=== PATIENT | male | born 1995 | race Caucasian/White ===

== ENCOUNTER 2017-06-05 19:40 | Inpatient (IN) | payer SELFPAY ==
[~2017-06-05] VITALS: Ht 162.6 cm; Wt 75.0 kg
[2017-06-05] MEDS ORDERED: ONDANSETRON (ODT) 4 MG TAB ODT STA (21:01)
--- NOTE | 2017-06-05 21:18 | ERD ---
ER Documentation Chief Complaint Date/Time DATE: 06/05/17 TIME: 21:15 Chief Complaint c/o abd x 5 days. Denies any n/v/d/f/c. HPI This is a 22-year-old male who presents the emergency department today complaining of intermittent abdominal pain and some nausea for the past 5 days. States he ate some crab on Friday and started having pain after that. Patient states he is here visiting his mom from [place]. States he tried some Zantac. Denies any fevers or chills, vomiting, diarrhea, constipation. ROS All systems reviewed and are negative except as per history of present illness. Medications Home Meds No Active Prescriptions or Reported Meds Allergies Allergies: Coded Allergies: No Known Allergy (Unverified , 04/23/14) PMhx/Soc Hx Alcohol Use: No Hx Substance Use: Yes (marijuana) Hx Tobacco Use: No Physical Exam Vitals Vital Signs Date Time Temp Pulse Resp B/P Pulse Ox O2 Delivery O2 Flow Rate FiO2 06/05/17 19:50 98.4 82 18 126/58 98 Physical Exam Const: NAD Head: Atraumatic Eyes: Normal Conjunctiva ENT: Normal External Ears, Nose and Mouth. Neck: Full range of motion..~ No meningismus. Resp: Clear to auscultation bilaterally Cardio: Regular rate and rhythm, no murmurs Abd: Soft, epigastric tenderness and mild periumbilical pain. No right upper quadrant pain non distended. Normal bowel sounds. No tenderness at McBurney's. Skin: No petechiae or rashes Back: No midline or flank tenderness Ext: No cyanosis, or edema Neur: Awake and alert Psych: Normal Mood and Affect Result Diagram: 06/05/17212706/05/172127 Results 24 hrs Laboratory Tests Test 06/05/17 21:28 White Blood Count 11.310^3/ul Red Blood Count 4.3710^6/ul Hemoglobin 14.3g/dl Hematocrit 40.5% Mean Corpuscular Volume 92.7fl Mean Corpuscular Hemoglobin 32.7pg Mean Corpuscular Hemoglobin Concent 35.3g/dl Red Cell Distribution Width 12.3% Platelet Count 24886^3/UL Mean Platelet Volume 10.0fl Neutrophils % 59.7% Lymphocytes % 31.0% Monocytes % 7.6% Eosinophils % 0.9% Basophils % 0.4% Nucleated Red Blood Cells % 0.0/100WBC Neutrophils # 6.810^3/ul Lymphocytes # 3.510^3/ul Monocytes # 0.910^3/ul Eosinophils # 0.110^3/ul Basophils # 0.010^3/ul Nucleated Red Blood Cells # 0.010^3/ul Bedside Urine pH (LAB) 7.0 Bedside Urine Protein (LAB) Trace Bedside Urine Glucose (UA) Negative Bedside Urine Ketones (LAB) Negative Bedside Urine Blood Trace-intact Bedside Urine Nitrite (LAB) Negative Bedside Urine Leukocyte Esterase (L Negative Sodium Level 141mmol/L Potassium Level 4.3mmol/L Chloride Level 104mmol/L Carbon Dioxide Level 30mmol/L Anion Gap 11 Blood Urea Nitrogen 15mg/dl Creatinine 0.87mg/dl Glucose Level 98mg/dl Calcium Level 9.1mg/dl Total Bilirubin 0.6mg/dl Direct Bilirubin 0.00mg/dl Indirect Bilirubin 0.6mg/dl Aspartate Amino Transf (AST/SGOT) 22IU/L Alanine Aminotransferase (ALT/SGPT) 40IU/L Alkaline Phosphatase 140IU/L Total Protein 6.9g/dl Albumin 3.8g/dl Globulin 3.10g/dl Albumin/Globulin Ratio 1.22 Lipase 97U/L Current Medications Medications (Trade) Dose Ordered Sig/Radha Route PRN Reason Start Time Stop Time Status Last Admin Dose Admin Ondansetron HCl (Zofran Odt) 4 mg ONCE STAT ODT 06/05/17 21:01 06/05/17 21:05 DC 06/05/17 21:24 Miscellaneous Medication (Gi Cocktail (2)) 40 ml ONCE ONCE PO 06/05/17 21:30 06/05/17 21:31 DC 06/05/17 21:23 DIAGNOSTIC IMAGING REPORT Patient: RENÉE HAYS : 1995 Age: 22 Sex: M MR #: [id number] DOS: 06/05/17 230 Ordering MD: MIREYA ANN PA-C Location: [facility] Room/Bed: PROCEDURE: CT Abdomen and pelvis without contrast. CLINICAL INDICATION: Abdominal pain. TECHNIQUE: CT scan of the abdomen and pelvis was performed on a multi- detector high-resolution CT scanner. Contiguous axial images were obtained from the lung bases to the ischial tuberosities without intravenous contrast. Coronal and sagittal reformatted images were also obtained. Images were reviewed on the PACS workstation. One or more of the following dose reduction techniques were used: - Automated exposure control. - Adjustment of the mA and/or kV according to patient size. - Use of iterative reconstruction technique. Exam CTD/vol = 9.69 mGy. Total exam DLP = 591.19 mGy-cm. COMPARISON: None. FINDINGS: Evaluation of the lung bases demonstrates no pleural or parenchymal disease. Abdomen: The liver is normal in size. There is no focal mass or dilatation of the biliary tree. The gallbladder is not distended. The spleen, pancreas and bilateral adrenal glands are within normal limits. Bilateral kidneys are normal in size with no contour deforming mass identified. There is no radiopaque renal or ureteral calculus identified. There is no hydronephrosis or hydroureter. There is no retroperitoneal adenopathy. The abdominal aorta is of normal caliber. There is a distended appendix extending medial and inferior to the cecum measuring up to 15 mm in diameter with mild adjacent stranding. There is no bowel obstruction or free air. There is no diverticulosis or diverticulitis. There is no ascites. Pelvis: The bladder is unremarkable. There is trace pelvic free fluid. The prostate and seminal vesicles are within normal limits. There is no significant pelvic adenopathy. Evaluation of the osseous structures demonstrates no suspicious lytic or blastic lesion. IMPRESSION: Acute appendicitis. Trace pelvic free fluid. A call report was made to Dr. Salgado at 11:35 p.m. .Luiz Sands MD, MD Date Time Electronically viewed and signed by .Luiz Sands MD, MD on 06/05/2017 23:36 .T/ CC: MIREYA ANN PA-C Procedures/[facility] This is a 22-year-old male presents to the emergency department today complaining of intermittent abdominal pain and nausea for the past 5 days that started after eating some crab. On physical exam patient has epigastric tenderness and mild periumbilical tenderness. He is afebrile and otherwise well -appearing however I did obtain laboratory workup. laboratory workup shows a mildly elevated white blood cell count of 11.3. He is not anemic. Platelets are within normal limits. Electrolyte are within normal limits. Glucose within normal limits. Lipase is within normal limits. Liver enzymes are within normal limits. UA negative for infection. Patient was given Zofran and GI cocktail here in the emergency department and pain improved slightly however he still continued to complain of pain just above his umbilicus with movement. Given this I did obtain a CT abdomen noncontrast after discussing the patient with Dr. Salgado CT abdomen pelvis noncontrast shows acute appendicitis. There is trace pelvic free fluid. I have explained the results to the patient mother. Patient has agreed to be admitted to the hospital. I discussed the patient with Dr. Spence and he is agreed to admit the patient. Any further workup or orders placed will be completed by him. Departure Diagnosis: Primary Impression: Abdominal pain Abdominal location: periumbilical Qualified Code: R10.33 - Periumbilical abdominal pain Additional Impression: Appendicitis Appendicitis type: acute appendicitis Acute appendicitis type: unspecified acute appendicitis type Qualified Code: K35.80 - Acute appendicitis, unspecified acute appendicitis type Condition: MIREYA Victor PA-C Jun 05, 2017 21:18
[2017-06-05 21:21] LABS: URINE BLOOD (Dip) POC Trace-intact (NEGATIVE)
[2017-06-05] MEDS ORDERED: LIDOCAINE/MYLANTA 40 ML BTL PO ONE (21:30)
[2017-06-05 21:46] LABS: BASOPHILS % 0.4 % (0.0-2.0); EOSINOPHILS # 0.1 10^3/ul (0.0-0.5); EOSINOPHILS % 0.9 % (0.0-7.0); HEMATOCRIT 40.5 % (42.0-52.0); HEMOGLOBIN 14.3 g/dl (14.0-18.0); LYMPHOCYTES # 3.5 10^3/ul (0.8-2.9); MEAN CORPUSCULAR HEMOGLOBIN 32.7 pg (29.0-33.0); MEAN CORPUSCULAR HGB CONC 35.3 g/dl (32.0-37.0); MEAN CORPUSCULAR VOLUME 92.7 fl (82.0-101.0); MONOCYTE # 0.9 10^3/ul (0.3-0.9); MONOCYTES % 7.6 % (0.0-11.0); NEUTROPHIL # 6.8 10^3/ul (1.6-7.5); NEUTROPHILS % 59.7 % (39.0-77.0); PLATELET COUNT 245 10^3/UL (140-415); RED BLOOD COUNT 4.37 10^6/ul (4.70-6.10); RED CELL DISTRIBUTION WIDTH 12.3 % (11.5-14.5); WHITE BLOOD COUNT 11.3 10^3/ul (4.8-10.8)
[2017-06-05 22:18] LABS: ALBUMIN 3.8 g/dl (3.3-4.9); ALBUMIN/GLOBULIN RATIO 1.22; BILIRUBIN,INDIRECT 0.6 mg/dl (0-1.1); BILIRUBIN,TOTAL 0.6 mg/dl (0.2-1.3); CALCIUM 9.1 mg/dl (8.4-10.2); CREATININE 0.87 mg/dl (0.61-1.24); POTASSIUM 4.3 mmol/L (3.5-5.1); TOTAL PROTEIN 6.9 g/dl (6.1-8.1)
--- NOTE | 2017-06-05 23:36 | RADRPT ---
PROCEDURE: CT Abdomen and pelvis without contrast. CLINICAL INDICATION: Abdominal pain. TECHNIQUE: CT scan of the abdomen and pelvis was performed on a multi-detector high-resolution CT scanner. Contiguous axial images were obtained from the lung bases to the ischial tuberosities wit hout intravenous contrast. Coronal and sagittal reformatted images were also obtained. Images were reviewed on the PACS workstation. One or more of the following dose reduction techniques were used: - Automated exposure control. - Adjustment of the mA and/or kV according to patient size. - Use of iterative reconstruction technique. Exam CTD/vol = 9.69 mGy. Total exam DLP = 591.19 mGy-cm. COMPARISON: None. FINDINGS: Evaluation of the lung bases demonstrates no pleural or parenchymal disease. Abdomen: The liver is normal in size. There is no focal mass or dilatation of the biliary tree. T he gallbladder is not distended. The spleen, pancreas and bilateral adrenal glands are within jose l limits. Bilateral kidneys are normal in size with no contour deforming mass identified. There is no radiopaque renal or ureteral calculus identified. There is no hydronephrosis or hydroureter. T here is no retroperitoneal adenopathy. The abdominal aorta is of normal caliber. There is a distended appendix extending medial and inferior to the cecum measuring up to 15 mm in di ameter with mild adjacent stranding. There is no bowel obstruction or free air. There is no divert iculosis or diverticulitis. There is no ascites. Pelvis: The bladder is unremarkable. There is trace pelvic free fluid. The prostate and seminal v esicles are within normal limits. There is no significant pelvic adenopathy. Evaluation of the osseous structures demonstrates no suspicious lytic or blastic lesion. IMPRESSION: Acute appendicitis. Trace pelvic free fluid. A call report was made to Dr. Salgado at 11:35 p.m. .Luzi Sands MD, MD Date Time Electronically viewed and signed by .Luiz Sands MD, MD on 06/05/2017 23:36 .T/
[2017-06-06] VITALS (16 sets, daily range): BP systolic 95–135; BP diastolic 43–75; PULSE 68–95; RESP 12–24; TEMP 98.2; Ht 162.6 cm; Wt 75.0 kg
[2017-06-06] MEDS ORDERED: PIPER-TAZO 3.375 GM IV (PMX) 100 ML IVPB ONE
[2017-06-06] MEDS ORDERED: SOD CHLORIDE 0.9% 1,000 ML IV ONE
--- NOTE | 2017-06-06 00:21 | EN ---
Date/Time of Note Date/Time of Note DATE: 06/06/17 TIME: 00:17 ER Progress Note Chief complaint: Abdominal pain HPI: The patient is a 22-year-old male, who was seen in the ED 2 initially, presenting with umbilical abdominal pain intermittently for the last 4 days, worse today, the abdominal pain is worse after eating and movement. He also complains of having 5 loose bowel movement today. He denies fever, chills, neck pain, chest pain, nausea, vomiting, dysuria. He does not smoke nor drink Past medical/surgical history: None Const: No acute distress. Head: Atraumatic. Eyes: Normal Conjunctiva. ENT: Normal External Ears, Nose and Mouth. Neck: Full range of motion. No meningismus. Resp: Clear to auscultation bilaterally. Cardio: Regular rate and rhythm. Abd: Soft, non distended, normal bowel sounds, Localized right lower quadrant tenderness, no rigidity, rebound, CVA tenderness Skin: No petechiae or rashes. Back: No midline or flank tenderness. Ext: No cyanosis, or edema. Neur: Awake and alert. No focal deficit Psych: Normal Mood and Affect. [place] [id number] Radiology Main Line: [phone] DIAGNOSTIC IMAGING REPORT Patient: RENÉE HAYS : 1995 Age: 22 Sex: M MR #: [id number] DOS: 06/05/17 2305 Ordering MD: MIREYA ANN PA-C Location: [facility] Room/Bed: PROCEDURE: CT Abdomen and pelvis without contrast. CLINICAL INDICATION: Abdominal pain. TECHNIQUE: CT scan of the abdomen and pelvis was performed on a multi- detector high-resolution CT scanner. Contiguous axial images were obtained from the lung bases to the ischial tuberosities without intravenous contrast. Coronal and sagittal reformatted images were also obtained. Images were reviewed on the PACS workstation. One or more of the following dose reduction techniques were used: - Automated exposure control. - Adjustment of the mA and/or kV according to patient size. - Use of iterative reconstruction technique. Exam CTD/vol = 9.69 mGy. Total exam DLP = 591.19 mGy-cm. COMPARISON: None. FINDINGS: Evaluation of the lung bases demonstrates no pleural or parenchymal disease. Abdomen: The liver is normal in size. There is no focal mass or dilatation of the biliary tree. The gallbladder is not distended. The spleen, pancreas and bilateral adrenal glands are within normal limits. Bilateral kidneys are normal in size with no contour deforming mass identified. There is no radiopaque renal or ureteral calculus identified. There is no hydronephrosis or hydroureter. There is no retroperitoneal adenopathy. The abdominal aorta is of normal caliber. There is a distended appendix extending medial and inferior to the cecum measuring up to 15 mm in diameter with mild adjacent stranding. There is no bowel obstruction or free air. There is no diverticulosis or diverticulitis. There is no ascites. Pelvis: The bladder is unremarkable. There is trace pelvic free fluid. The prostate and seminal vesicles are within normal limits. There is no significant pelvic adenopathy. Evaluation of the osseous structures demonstrates no suspicious lytic or blastic lesion. IMPRESSION: Acute appendicitis. Trace pelvic free fluid. A call report was made to Dr. Salgado at 11:35 p.m. .Luiz Sands MD, MD Date Time Electronically viewed and signed by .Luiz Sands MD, MD on 06/05/2017 23:36 .T/ CC: MIREYA ANN PA-C EKG: Read by emergency physician Rate/Rhythm: Normal Sinus Rhythm 82 beats/min QRS, ST, T-waves: No ST elevation, no T inversion Impression: Normal EKG CXR pending MEDICAL MAKING DECISION: The patient is a 22-year-old male, presenting with acute appendicitis. He was treated with 1 L normal saline for clinical dehydration, Zosyn IV for acute appendicitis, morphine 2 mg IV for pain, Zofran 4 mg IV for nausea with good response. The differential diagnoses considered include but are not limited to cholelithiasis, cholecystitis, cystitis, pancreatitis, hepatitis, gastritis, peptic ulcer disease, gastric ulcer, appendicitis, diverticulitis, cholangitis, choledocholithiasis, partial small bowel obstruction. Consultation: I discussed the patient with the on-call surgeon Dr. Galindo at 12 :10 AM, who was made aware of the lab, the treatment, the patient condition. He accepted the consult Diagnostic impression: Acute appendicitis Disposition: I discussed the findings with the patient. I discussed the patient with the on-call hospitalist Dr. Rodriguez at 12:20 AM who was made aware of the lab, the treatment, the patient condition. The patient is admitted to CINTHYA Burris MD Jun 06, 2017 00:21
[2017-06-06] MEDS ORDERED: ACETAMINOPHEN 325 MG TAB PO PRN (00:30)
[2017-06-06] MEDS ORDERED: morphine 2 MG INJ IV PRN (00:30)
[2017-06-06] MEDS ORDERED: NACL 0.9% 3 ML SYG IV SCH (00:30)
[2017-06-06] MEDS ORDERED: morphine 2 MG INJ IV ONE (00:30)
--- NOTE | 2017-06-06 00:34 | RADRPT ---
PROCEDURE: Portable chest x-ray. CLINICAL INDICATION: 22 years of age, male. Preop. TECHNIQUE: Portable AP view of the chest. COMPARISON: None available. FINDINGS: Cardiomediastinal contours are normal. Lungs are clear. Negative for pleural effusion or pneumothorax. No acute bony abnormality. IMPRESSION: Negative for evidence of an acute chest process. RPTAT: HCTS Physician Rick Date Time Electronically viewed and signed by Vargas Yu Physician on 06/06/2017 00:34 CS/
[2017-06-06] MEDS ORDERED: ONDANSETRON 4 MG INJ IV ONE (00:37)
[2017-06-06] MEDS: SOD CHLORIDE 0.9% 1,000 ML IV SCH ×2 (01:51→12:47)
[2017-06-06] MEDS: FAMOTIDINE 20 MG INJ IV SCH ×2 (01:52→09:15)
--- NOTE | 2017-06-06 05:16 | HP ---
Date/Time of Note Date/Time of Note DATE: 06/06/17 TIME: 05:12 Assessment/Plan VTE Prophylaxis VTE Prophylaxis Intervention: SCD's Lines/Catheters IV [facility]from [facility] Peripheral IV Assessment/Plan Chief Complaint/Hosp Course This is a 22-year-old male being admitted to the [facility] floor for: #1 acute appendicitis: #1 acute appendicitis: Acute patient n.p.o., IV fluid hydration with normal saline, IV narcotics for pain control, Zofran for nausea as needed, Zosyn IV, surgery on-call consulted #2 asthma: Patient currently is not on any medication. Will continue to monitor. #3 DVT and GI prophylaxis: SCDs, acid miguelito Further treatment strategy will be implemented as per the clinical course Problems: HPI/ROS Admit Date/Time Admit Date/Time Jun 06, 2017 at 00:14 Hx of Present Illness Chief complaint: Abdominal pain This is a 22-year-old male who presents the emergency department today complaining of intermittent abdominal pain and some nausea for the past 5 days. States he ate some crab on Friday and started having pain after that. Patient states he is here visiting his mom from [place]. States he tried some Zantac. Denies any fevers or chills, vomiting, diarrhea, constipation. Allergies: Seafood, shrimp Medications: None ROS Const: As per HPI Eyes : No pain discharge or redness or change in visual acuity ENT: No pain, sore throat, congestion, congestion, dysphagia or discharge Respiratory: No shortness of breath, cough, sputum, wheezing, or pleuritic pain Cardiovascular: No chest pain, palpitation, PND, or edema GI : As per HPI Genitourinary: No dysuria, hematuria, flank pain , discharge or CVA tenderness Musculoskeletal: No joint pain, back pain, neck pain, restricted range of motion in neck or joints Skin: No rash, bruising or hives Neuro: No headache, dizziness, syncope, seizure, focal weakness Endocrine: No polyuria, polydipsia, temperature intolerance Psych: No hallucination, depression, anxiety or suicidal ideation PMH/Family/Social Past Medical History Asthma Past Surgical History Past Surgical Hx: no surgical history Family History Significant Family History: no pertinent family hx Social History Alcohol Use: none Smoking Status: Never smoker Drug Use: none Exam/Review of Systems Vital Signs Vitals Vital Signs Date Time Temp Pulse Resp B/P Pulse Ox O2 Delivery O2 Flow Rate FiO2 06/06/17 02:50 98.8 77 16 120/60 98 06/06/17 01:11 Room Air Exam Exam General: Patient is well-developed well-nourished The patient is alert oriented -3 lying comfortably in bed. HEENT: Atraumatic, normocephalic. The pupils are equal, round and reactive. Extraocular motor are intact Neck: Supple with full range of motion. No rigidity or meningismus Chest: Nontender Lungs: Clear to auscultation bilaterally no crackles rales or wheezing Heart: Normal S1-S2, Regular rhythm and rate. No murmur, S3, or S4 Abdomen: Right lower quadrant tenderness to palpation, normal bowel sounds, no distention Extremities: Normal to inspection, no edema no cyanosis Neurologic: Normal mental status, speech normal, cranial nerves II through XII are intact, motor and sensory are intact, no focal weakness Additional Comments PROCEDURE: CT Abdomen and pelvis without contrast. CLINICAL INDICATION: Abdominal pain. TECHNIQUE: CT scan of the abdomen and pelvis was performed on a multi- detector high-resolution CT scanner. Contiguous axial images were obtained from the lung bases to the ischial tuberosities without intravenous contrast. Coronal and sagittal reformatted images were also obtained. Images were reviewed on the PACS workstation. One or more of the following dose reduction techniques were used: - Automated exposure control. - Adjustment of the mA and/or kV according to patient size. - Use of iterative reconstruction technique. Exam CTD/vol = 9.69 mGy. Total exam DLP = 591.19 mGy-cm. COMPARISON: None. FINDINGS: Evaluation of the lung bases demonstrates no pleural or parenchymal disease. Abdomen: The liver is normal in size. There is no focal mass or dilatation of the biliary tree. The gallbladder is not distended. The spleen, pancreas and bilateral adrenal glands are within normal limits. Bilateral kidneys are normal in size with no contour deforming mass identified. There is no radiopaque renal or ureteral calculus identified. There is no hydronephrosis or hydroureter. There is no retroperitoneal adenopathy. The abdominal aorta is of normal caliber. There is a distended appendix extending medial and inferior to the cecum measuring up to 15 mm in diameter with mild adjacent stranding. There is no bowel obstruction or free air. There is no diverticulosis or diverticulitis. There is no ascites. Pelvis: The bladder is unremarkable. There is trace pelvic free fluid. The prostate and seminal vesicles are within normal limits. There is no significant pelvic adenopathy. Evaluation of the osseous structures demonstrates no suspicious lytic or blastic lesion. IMPRESSION: Acute appendicitis. Trace pelvic free fluid. A call report was made to Dr. Salgado at 11:35 p.m. .Luiz Sands MD, Date Time Electronically viewed and signed by .Liuz Sands MD, on 06/05/2017 23:36 .T/ CC: MIREYA ANN-Connor PROCEDURE: Portable chest x-ray. CLINICAL INDICATION: 22 years of age, male. Preop. TECHNIQUE: Portable AP view of the chest. COMPARISON: None available. FINDINGS: Cardiomediastinal contours are normal. Lungs are clear. Negative for pleural effusion or pneumothorax. No acute bony abnormality. IMPRESSION: Negative for evidence of an acute chest process. RPTAT: HCTS Physician Rick Date Time Electronically viewed and signed by Vargas Yu Physician on 06/06/2017 00: 34 CS/ CC: CINTHYA MICHEL MD Labs Result Diagram: 06/05/17212706/05/172127 Medications Medications Current Medications Sodium Chloride (NS) 1,000 ml @ 80 mls/hr [id number] IV Last administered on 06/06t 01:51; Admin Dose 80 MLS/HR; Start 06/06/17 at 00:17 Ondansetron HCl (Zofran Inj) 4 mg Q6H PRN IV NAUSEA AND/OR VOMITING; Start at 00:30 Acetaminophen (Tylenol Tab) 650 mg Q6H PRN PO PAIN LEVEL 1-3 OR FEVER; Start at 00:30 Morphine Sulfate (morphine) 2 mg Q4H PRN IV SEVERE PAIN LEVEL 7-10; Start 06/06 at 00:30 Famotidine 20 mg 20 mg Q12 IV Last administered on 06/06/17t 01:52; Admin Dose 20 MG; Start 06/06/17 at 00:30 Piperacillin Sod/ Tazobactam Sod (Zosyn 3.375gm/ 100 ml (Pmx)) 100 ml @ 200 mls /hr Q8 IVPB ; Start 06/06/17 at 06:00 JOSE FABIAN Jun 06, 2017 05:16
[2017-06-06] MEDS ORDERED: PIPER-TAZO 3.375 GM IV (PMX) 100 ML IVPB SCH (06:00)
--- NOTE | 2017-06-06 12:09 | CONS ---
Date/Time of Note Date/Time of Note DATE: 06/06/17 TIME: 12:09 Assessment/Plan Assessment/Plan Additional Assessment/Plan [facility] IN[facility]IENT CONSULT[facility] NOTE DATE OF SERVICE: 06/06/2017 PLACE OF SERVICE: [facility], sixth floor ASSESSMENT AND PLAN: A very-pleasant 22-year-old gentleman with comorbidity of BMI 28.4, presenting with acute appendicitis. I recommended and consented the patient and family for laparoscopic, possible open appendectomy. With above assessment, I've recommended the followin. To the operating room for above Thank you very much for having me involved in the care of this very pleasant patient and wonderful family. If you have any questions, please feel free to contact me at [phone]. Nature of presenting problem: Moderate severity Please note that, given the limited number of diagnoses or management options, the moderate amount and/or complexity of data needed to be reviewed, and moderate risk of complications and/or morbidity or mortality, this qualifies as moderate complexity type of decision-making. Disclaimers: 1. Inadvertent spelling and grammatical errors are likely due to electronic health record (EHR)/dictation software use and do not reflect on the quality of delivered patient care. 2. The electronic timestamp recorded on this note does not necessarily reflect the actual date and time of the visit. 3. Portions of this note are created through electronic templates and computer algorithms that may bring in information either from the system or from other physicians and providers that are outside of my control and may not be always accurate. In general (but not always) this happens either in the beginning or at the end of the note. My portions of the gathered data are generally dictated in 1 continuous block of text and entered into one field in the EHR. 4. There may be other unanticipated errors in the note that are outside of my control. I can only attest to the portions of the note that I have created. Updated clinical summary: Very pleasant and otherwise healthy 22-year-old gentleman with comorbidity of BMI 28.4, presenting with acute appendicitis to [facility] through the emergency department on 06/06/2017. Comorbidities: 1. BMI 28.4 CONSULTATION REQUESTED BY: Jeny Rodriguez MD HISTORY OF PRESENT ILLNESS: Patient is a very pleasant and otherwise healthy 22- year-old gentleman with comorbidity of BMI 28.4, presenting with acute appendicitis to [facility] through the emergency department on 06/06/2017. Patient reported having pain since Friday. He started having nausea but no vomiting. No change in bowel or bladder habits including no diarrhea or constipation or blood in the stool. He describes the pain as right lower quadrant without radiation. Severe at its worse. No alleviating or exacerbating factors. No prior operations in the past. No prior similar symptoms in the past. No other major complaints. Pain essentially resolved with pain medications. Workup was positive for white blood cell count elevation as well as CT findings. ALLERGIES: Raw seafood and shrimp (unknown reaction) MEDICATIONS Documented in the electronic records and reviewed by me. Please see the electronic records for details, as well as details for inpatient medications which were also reviewed by me. SOCIAL HISTORY: The patient lives with family.-Tob;-ETOH;-IVDU FAMILY HISTORY: There are no significant medical, surgical or oncologic issues in the family as reported by the patient or reflected in the chart. REVIEW OF SYSTEMS: Other than mentioned above, there were no other pertinent positives or pertinent negatives in an otherwise complete 14 point review of systems. PHYSICAL EXAMINATION GENERAL: The patient appears to be a very pleasant gentleman of descent lying in bed, appearing stated age, and otherwise in no acute distress. BMI: 28.4 VITAL SIGNS: AVSS (please also see auto important data if available as well as the electronic records) HEENT: Normocephalic and atraumatic. Extraocular muscles and hearing are grossly intact bilaterally and symmetrically. Sclerae are nonicteric. Oral cavity is clear; oral mucosa appear to be pink and moist. Dentition: fair. NECK: Supple. There is no lymphadenopathy or JVD. There is no submental, submandibular or supraclavicular lymphadenopathy. CHEST: Rises symmetrically with each breath; patient is breathing comfortably. There are no audible wheezes, rales or rhonchi on the gross exam. HEART: Pulse is regular and palpable on the right wrist. Capillary refill is normal. Carotid pulses are palpable bilaterally and symmetrically in the neck. EXTREMITIES: Lower extremities contain no pitting edema around the ankles bilaterally and symmetrically. ABDOMEN: Abdomen is soft, nontender and nondistended. No evidence of ascites, organomegaly, caput medusae, engorged subcutaneous veins, or other abnormalities. There are no peritoneal signs or guarding. SKIN: Appears to be pink and feels warm to touch. NEUROLOGIC: Awake, alert, and follows commands appropriately. LABORATORY DATA: See below IMAGING: See electronic chart. Please note that I've personally reviewed all pertinent available images and I agree in general with their overall reported findings. Consultation Date/Type/Reason Admit Date/Time Jun 06, 2017 at 00:14 Past Surgical History Past Surgical Hx: no surgical history Social History Alcohol Use: none Smoking Status: Never smoker Drug Use: none Exam/Review of Systems Vital Signs Vitals Vital Signs Date Time Temp Pulse Resp B/P Pulse Ox O2 Delivery O2 Flow Rate FiO2 06/06/17 08:07 98.5 65 18 110/69 98 06/06/17 01:11 Room Air Intake and Output 06/05/17 06/05/17 06/06/17 15:00 23:00 07:00 Intake Total 240 ml Output Total 1200 ml Balance -960 ml Results Result Diagram: 06/05/17212706/05/172127 Results 24 hrs Laboratory Tests Test 06/05/17 21:28 White Blood Count 11.3 H Red Blood Count 4.37 L Hemoglobin 14.3 Hematocrit 40.5 L Mean Corpuscular Volume 92.7 Mean Corpuscular Hemoglobin 32.7 Mean Corpuscular Hemoglobin Concent 35.3 Red Cell Distribution Width 12.3 Platelet Count 245 Mean Platelet Volume 10.0 Neutrophils % 59.7 Lymphocytes % 31.0 Monocytes % 7.6 Eosinophils % 0.9 Basophils % 0.4 Nucleated Red Blood Cells % 0.0 Neutrophils # 6.8 Lymphocytes # 3.5 H Monocytes # 0.9 Eosinophils # 0.1 Basophils # 0.0 Nucleated Red Blood Cells # 0.0 Bedside Urine pH (LAB) 7.0 Bedside Urine Protein (LAB) Trace H Bedside Urine Glucose (UA) Negative Bedside Urine Ketones (LAB) Negative Bedside Urine Blood Trace-intact H Bedside Urine Nitrite (LAB) Negative Bedside Urine Leukocyte Esterase (L Negative Sodium Level 141 Potassium Level 4.3 Chloride Level 104 Carbon Dioxide Level 30 Anion Gap 11 Blood Urea Nitrogen 15 Creatinine 0.87 Glucose Level 98 Calcium Level 9.1 Total Bilirubin 0.6 Direct Bilirubin 0.00 Indirect Bilirubin 0.6 Aspartate Amino Transf (AST/SGOT) 22 Alanine Aminotransferase (ALT/SGPT) 40 Alkaline Phosphatase 140 H Total Protein 6.9 Albumin 3.8 Globulin 3.10 Albumin/Globulin Ratio 1.22 Lipase 97 Medications Medications Current Medications Sodium Chloride (NS) 1,000 ml @ 80 mls/hr [id number] IV Last administered on 06/06 01:51; Admin Dose 80 MLS/HR; Start 06/06/17 at 00:17 Ondansetron HCl (Zofran Inj) 4 mg Q6H PRN IV NAUSEA AND/OR VOMITING; Start at 00:30 Acetaminophen (Tylenol Tab) 650 mg Q6H PRN PO PAIN LEVEL 1-3 OR FEVER; Start at 00:30 Morphine Sulfate (morphine) 2 mg Q4H PRN IV SEVERE PAIN LEVEL 7-10; Start 06/06 at 00:30 Famotidine 20 mg 20 mg Q12 IV Last administered on 06/06/17 09:15; Admin Dose 20 MG; Start 06/06/17 at 00:30 Piperacillin Sod/ Tazobactam Sod (Zosyn 3.375gm/ 100 ml (Pmx)) 100 ml @ 200 mls /hr Q8 IVPB Last administered on 06/06/17 06:41; Admin Dose 200 MLS/HR; Start 06/06/17 at 06:00 STANTON HAMILTON M.D. Jun 06, 2017 12:09
--- NOTE | 2017-06-06 12:10 | HPN ---
Date/Time of Note Date/Time of Note DATE: 06/06/17 TIME: 12:09 Interval H&P Admission Note Pt. seen H&P reviewed: No system changes Pt. seen H&P reviewed. No system changes (I attest that I have seen and examined the patient and reviewed the operation in detail, as well as its risks , benefits and alternatives of the operation). I attest that I have seen and examined the patient and reviewed in detail the operation, and its associated risks, benefits and alternative. I have answered all the patient's questions to the best of my ability and the patient wishes to proceed. Please refer to rest of electronic medical record for additional updates. STANTON HAMILTON M.D. Jun 06, 2017 12:10
[2017-06-06] MEDS ORDERED: BUPIVACAINE 0.5%/EPI (SDV) 10 ML INJ ONE (12:35)
[2017-06-06] MEDS ORDERED: MIDAZOLAM 1 MG/ML 2 ML INJ ONE (12:52)
[2017-06-06] MEDS ORDERED: FENTAnyl 50 MCG/ML VIAL ONE (12:52)
[2017-06-06] MEDS ORDERED: PROPOFOL 20 ML ONE ×2 (12:53→12:59)
[2017-06-06] MEDS ORDERED: LIDOCAINE 2% (SDV) 5 ML INJ ONE (12:53)
[2017-06-06] MEDS ORDERED: ROCURONIUM 50 MG INJ ONE (12:59)
[2017-06-06] MEDS ORDERED: SUCCINYLCHOLINE CHLORIDE 100 MG/5 ML SYG IV ONE (12:59)
[2017-06-06] MEDS ORDERED: ONDANSETRON 4 MG INJ ONE (13:02)
[2017-06-06] MEDS ORDERED: FAMOTIDINE 20 MG INJ ONE (13:03)
[2017-06-06] MEDS ORDERED: DEXAMETHASONE 4 MG/ML 1 ML INJ ONE (13:03)
[2017-06-06] MEDS ORDERED: GLYCOPYRROLATE 0.4 MG INJ ONE ×2 (13:04→13:53)
[2017-06-06] MEDS ORDERED: NEOSTIGMINE 3 MG/3 ML SYRINGE ONE ×2 (13:04→13:52)
[2017-06-06 13:21] LABS: PROTIME 13.2 Sec (12.2-14.2)
[2017-06-06] MEDS ORDERED: FENTAnyl 50 MCG/ML VIAL IV PRN ×3 (14:00)
[2017-06-06] MEDS ORDERED: PROCHLORPERAZINE 10 MG INJ IV PRN (14:00)
[2017-06-06] MEDS ORDERED: MEPERIDINE 25 MG INJ IV PRN (14:00)
[2017-06-06] MEDS ORDERED: DIPHENHYDRAMINE 50 MG INJ IV PRN (14:00)
[2017-06-06] MEDS ORDERED: HYDROmorphONE (0.2 MG/ML) 10ML SYG IV PRN ×3 (14:00)
[2017-06-06] MEDS ORDERED: ONDANSETRON 4 MG INJ IV PRN (14:00)
[2017-06-06] MEDS ORDERED: KETOROLAC 30 MG INJ ONE (14:03)
[2017-06-06] MEDS ORDERED: ACETAMINOPHEN 1000MG/100ML IV 0 ML ONE (14:03)
--- NOTE | 2017-06-06 14:14 | OPR ---
Date/Time of Note Date/Time of Note DATE: 06/06/17 TIME: 14:14 Operative Report Surgeon see signature line Procedure Description [facility] PLACE OF SERVICE: [facility] DATE OF SURGERY: 06/06/2017 PREOPERATIVE DIAGNOSIS: 1. Acute appendicitis 2. BMI 28.4 POSTOPERATIVE DIAGNOSIS: 1. Acute appendicitis 2. BMI 28.4 OPERATION: 1. Laparoscopic appendectomy SURGEON: Stanton Hamilton M.D. EMERGENCY MEDICAL DISPATCHER: None ANESTHESIA: General endotracheal tube anesthesia ANESTHESIOLOGIST: Anastasia Morales M.D. BRIEF SUMMARY: An otherwise uncomplicated laparoscopic appendectomy was performed with findings of non-perforated appendicitis. Updated clinical summary: Very pleasant and otherwise healthy 22-year-old gentleman with comorbidity of BMI 28.4, presenting with acute appendicitis to [facility] through the emergency department on 06/06/2017. Comorbidities: 1. BMI 28.4 BRIEF HISTORY: The patient is a very pleasant 22-year-old gentleman who presented with signs and symptoms consistent with acute appendicitis. I met with the patient and family (his mother) and counseled them regarding the possible options of treatment, and I strongly suggested a laparoscopic, possible open appendectomy. We reviewed the operation in detail as well as the risks, benefits, alternatives, and expected outcomes of this operation. After careful consideration of all the risks, benefits, and alternatives, the patient and family appeared to understand those risks and wished to proceed with surgery. For a detailed report of my consultation with patient and family, please refer to my separate consultation note. STATEMENT OF THE INFORMED CONSENT: The patient and family appeared to understand the risks of the operation to include, but not be limited to risk of postoperative pain and scar tissue, possible infection or bleeding requiring other interventions such as opening the wound, placement of drainage catheters, or other operative interventions; possible injury to surrounding to structures including bowel, bladder, bile duct, or blood vessels, or solid organs such as liver, kidney, or pancreas requiring other interventions or procedures; possible leakage of bowel from anastomotic sites or suture lines causing significant increase in morbidity and mortality and requiring multiple interventions including but not limited to, placement of drainage catheters, imaging studies, as well as operative interventions; possible other source of sepsis such as urinary tract infections or pneumonias, or other sources of potentially life threatening problems such as deep venous thrombus formation causing pulmonary embolism, myocardial arrhythmias and infarctions, and even . After careful consideration of all their options, the patient and family appeared to understand and wished to proceed with surgery. DESCRIPTION OF PROCEDURE: After obtaining informed consent, the patient was brought into the operating room and was placed in a normal supine position, where successful general endotracheal tube anesthesia was performed. Intravenous access was already in place and intravenous antimicrobials had been appropriately chosen and dosed prior to the operation. The patient's abdominal skin was prepped and draped from the nipple line down to the level of the upper thighs in the usual sterile fashion. We then called a surgical time-out where the patient's identification, date of , nature of the operation, allergies , presence of intravenous antimicrobials, presence of needed equipment, and any other concerns were reviewed and agreed upon by all members of the operating room team. We then started the operation by placing a 5 mm skin incision in the left lower quadrant and then introduced a 5 mm [employer] trocar into the peritoneal space, visualizing all the layers of the abdominal wall as we entered. Note that there was no indication of any injury to underlying structures with our entry into the peritoneal space. We insufflated the abdominal cavity to a maximum pressure of 15 mmHg and again inspected the area of insertion and ensured no obvious injury to underlying structures prior to inspecting the abdominal cavity and showing no obvious pus, bowel contents, or other abnormal features. We could not see the appendix very well. We, therefore, injected the future sites of our other trocars with 0.25% Marcaine with epinephrine and placed a 5 mm [employer] trocar into the midline suprapubic area, taking care not to injure the bladder. We also placed a 12 mm trocar in the umbilical midline area, all under direct visualization. With our instruments in place, we had excellent visualization and access to the right lower quadrant. We then identified the appendix, which was inflamed but had a normal base coming out of the cecum. I then went ahead and used blunt dissection to circumferentially isolate the base of the appendix and then transected this using one firing of the white load of the Endo-MAL stapler. We also repeated the firing on the mesentery of the appendix and completely disconnected the organ from the colon, delivered this out through the 12 mm trocar site inside of an EndoCatch bag without having to enlarge the fascial defect as well as without contaminating the wound. The specimen was sent to Pathology for further analysis. We then ensured adequate hemostasis and bile stasis, removed all our equipment including the pneumoperitoneum from the abdominal cavity prior to closing the infraumbilical fascia with 1 [id number] 0 Vicryl suture on a UR -6 needle, washing the wounds with copious amounts of normal saline, injecting the initial insertion point of the trocar with 0.25% Marcaine with epinephrine, and then closing the skin using interrupted 4-0 Monocryl sutures. Light dressing was then applied. At the end of the operation, both the sponge count and needle count were reportedly correct x2. The patient tolerated the procedure without any reported complications. ESTIMATED BLOOD LOSS: Less than 10 mL. BLOOD OR BLOOD PRODUCT TRANSFUSIONS: None to my knowledge. SPECIMENS: 1. Appendix COMPLICATIONS: None. DISPOSITION: Recovery area. Disclaimers: 1. Inadvertent spelling and grammatical errors are likely due to electronic health record (EHR)/dictation software use and do not reflect on the quality of delivered patient care. 2. The electronic timestamp recorded on this note does not necessarily reflect the actual date and time of the visit. 3. Portions of this note are created through electronic templates and computer algorithms that may bring in information either from the system or from other physicians and providers that are outside of my control and may not be always accurate. In general (but not always) this happens either in the beginning or at the end of the note. My portions of the gathered data are generally dictated in 1 continuous block of text and entered into one field in the EHR. 4. There may be other unanticipated errors in the note that are outside of my control. I can only attest to the portions of the note that I have created. STANTON HAMILTON M.D. Jun 06, 2017 14:14
[2017-06-06] MEDS ORDERED: NA PHOSPHATE/BIPHOS 133 ML ENEMA PR PRN (14:30)
[2017-06-06] MEDS ORDERED: DOCUSATE SODIUM 100 MG CAP PO PRN (14:30)
[2017-06-06] MEDS ORDERED: HYDROCODONE/APAP (5/325) TAB PO PRN (14:30)
[2017-06-06] MEDS ORDERED: BISACODYL 10 MG SUPP PR PRN (14:30)
[2017-06-06] MEDS ORDERED: HYDROmorphONE 1 MG/ML SYG IV PRN ×2 (14:30)
[2017-06-06] MEDS: ONDANSETRON 4 MG INJ IV PRN ×2 (14:32→15:42)
--- NOTE | 2017-06-06 15:48 | PDOCDIS ---
Discharge Instructions DIAGNOSIS Discharge Diagnosis Acute appendicitis. Status post laparoscopic appendectomy. CONDITION Patient Condition: Stable HOME CARE INSTRUCTIONS: Diet Instructions: Regular FOLLOW UP/APPOINTMENTS Follow-up Plan Ming Caban MD Specialty General Surgery Office Address [address] [place], [place] [id number] Office OTHER ORDERS: Other Orders: 1. Regular diet as tolerated. 2. Keep incisions clean and dry. May shower. Avoid tub baths and swimming for 2 weeks. Use mild soap and pat dry the incisions. 3. Take medications as needed for pain. 4. Call the surgeon or go to the nearest ER if you have severe abdominal pain despite pain medications. 5. Call the surgeon or go to the nearest ER if you notice any bleeding or secretions coming out of the incision sites. Also call the surgeon if you notice any blood in stool, if you have persistent fevers, or any other unusual signs or symptoms. 6. Follow-up with the surgeon Dr. Caban in 7 days for incision check. 7. Avoid heavy lifting [more than 25 pounds] for 8 weeks. SCHOOL/WORK RELEASE May return to School/Work on: Jun 08, 2017 May return to School/Work with: With Restrictions (No heavy lifting [greater than 25 pounds] for 8 weeks [until August 08].) NUBIA PETERSON NP Jun 06, 2017 15:48
[2017-06-06] MEDS ORDERED: HYDR-3498 PO (15:51)
[2017-06-06] MEDS ORDERED: DOCU-144 PO (15:51)
[2017-06-06] MEDS: HYDROCODONE/APAP (5/325) TAB PO PRN (19:08)
[2017-06-06] MEDS ORDERED: FAMOTIDINE 20 MG TAB PO SCH (21:00)
--- NOTE | 2017-06-06 22:32 | DS ---
DATE OF ADMISSION: 06/06/2017 DATE OF DISCHARGE: 06/06/2017 FINAL DIAGNOSES: Acute appendicitis. Status post laparoscopic appendectomy. DOUGH CUTTING MACHINE OPERATOR: Ming Caban MD General Surgery. HOSPITAL COURSE: This is a 22-year-old male with no significant past medical history who came to the emergency room with chief complaint of intermittent abdominal pain and nausea for a five day period. The patient verbalized that he ate some crab on Friday and started having the pain after that. The patient has been visiting his mom from [place]. The patient tried Zantac with minimal improvement. The patient denied any fevers, chills, vomiting, diarrhea or constipation. In the emergency room, the patient was noticed to have minimal leukocytosis. The patient underwent a CT scan of the abdomen and pelvis that showed acute appendicitis. The patient was admitted to inpatient medical surgical floor. The patient was started on empiric antibiotics. The patient was kept n.p.o. The patient was provided with IV fluids. General Surgery consult was obtained. The patient underwent a laparoscopic appendectomy on 06/06/2017. Postoperatively, the patient was started on a clear liquid diet and the patient's diet was advanced as tolerated to a regular consistency diet. The patient was encouraged to use incentive spirometry and the patient was encouraged on frequent ambulation. The patient was able to tolerate a regular consistency diet without any significant gastrointestinal symptoms. The patient was cleared by General Surgery to be discharged home. DISCHARGE DISPOSITION/PLAN: The patient will be discharged home today. The patient was instructed to take a regular diet as tolerated. The patient was instructed to keep the incisions clean and dry. He was instructed that he may shower, but avoid hot bath and swimming for two weeks. He was instructed to use mild soap and pat dry the incisions. The patient was instructed to take pain medications as needed. He was instructed to call the surgeon or go to the nearest emergency room if he has significant abdominal pain despite pain medications. The patient was instructed to call the surgeon or go to the nearest emergency room if he notices any bleeding or secretions coming out of the incision site. He was also instructed to call the surgeon if he notices any blood in stool, if he has persistent fevers, or any other unusual signs/symptoms. The patient was instructed to follow up with Dr. Caban in seven days for incision check. He was instructed to avoid heavy lifting of more than 25 pounds for eight weeks. The patient verbalized understanding of his discharge instructions. DISCHARGE CONDITION: Stable. DISCHARGE MEDICATIONS: 1. Colace 100 mg p.o. b.i.d. 2. [place] 5/325, 1 tablet p.o. every 4 hours p.r.n. pain (#20 tablets). DIAGNOSTIC DATA AND PROCEDURES: 1. CT scan of the abdomen and pelvis upon admission. Acute appendicitis. Trace pelvic free fluid. 2. Chest x-ray. Negative for any acute cardiopulmonary process. 3. CBC: WBC 11.3, hemoglobin 14.3, hematocrit 40.5, platelet count 245,000. 4. BMP: Sodium 141, potassium 4.3, chloride 104, carbon dioxide 30, anion gap 11, BUN 15, creatinine 0.8, glucose 98, calcium 9.1, AST 22, ALT 48, alkaline phosphatase 140. 5. Laparoscopic appendectomy. At this time, I would like to thank Dr. Caban for seeing the patient, doing the necessary procedures, and providing clinical recommendations. The case and management of this patient was fully discussed with Dr. Wiggins. Approximately 35 minutes were spent on coordinating the discharge of this patient. Dictated By: Angel Romano NP /sherine/[email or web address] /Document#: [id number] ANNAMARIA
[2017-06-07 02:00] VITALS: BP 109/55; RESP 20
[2017-06-07] MEDS: HYDROCODONE/APAP (5/325) TAB PO PRN ×2 (02:41→08:52)
[2017-06-07 06:10] LABS: BASOPHILS % 0.1 % (0.0-2.0); HEMATOCRIT 38.6 % (42.0-52.0); HEMOGLOBIN 13.4 g/dl (14.0-18.0); LYMPHOCYTES # 2.7 10^3/ul (0.8-2.9); LYMPHOCYTES % 19.9 % (15.0-51.0); MEAN CORPUSCULAR HEMOGLOBIN 31.9 pg (29.0-33.0); MEAN CORPUSCULAR HGB CONC 34.7 g/dl (32.0-37.0); MEAN CORPUSCULAR VOLUME 91.9 fl (82.0-101.0); MEAN PLATELET VOLUME 10.6 fl (7.4-10.4); MONOCYTE # 0.9 10^3/ul (0.3-0.9); MONOCYTES % 6.9 % (0.0-11.0); NEUTROPHIL # 9.7 10^3/ul (1.6-7.5); NEUTROPHILS % 72.7 % (39.0-77.0); PLATELET COUNT 239 10^3/UL (140-415); RED CELL DISTRIBUTION WIDTH 12.4 % (11.5-14.5); WHITE BLOOD COUNT 13.3 10^3/ul (4.8-10.8)
[2017-06-07 06:47] LABS: ALBUMIN 3.6 g/dl (3.3-4.9); ALBUMIN/GLOBULIN RATIO 1.02; BILIRUBIN,INDIRECT 0.7 mg/dl (0-1.1); BILIRUBIN,TOTAL 0.7 mg/dl (0.2-1.3); CHOL/HDL RATIO 3.9 RATIO; CREATININE 0.75 mg/dl (0.61-1.24); MAGNESIUM 1.7 mg/dl (1.7-2.5); TOTAL PROTEIN 7.1 g/dl (6.1-8.1)
[2017-06-07 07:53] VITALS: BP 115/68; RESP 18
[2017-06-07 08:13] VITALS: BP 141/71; RESP 18
[2017-06-07 08:16] LABS: THYROID STIMULATING HORMONE 0.346 MIU/L (0.465-4.680)
--- NOTE | 2017-06-07 08:54 | DS ---
Date/Time of Note Date/Time of Note DATE: 06/07/17 TIME: 08:53 Discharge Summary Admission/Discharge Info Admit Date/Time Jun 06, 2017 at 00:14 Discharge Date/Time Discharge Diagnosis Acute appendicitis. Status post laparoscopic appendectomy. Patient Condition: Stable Consults Ming Caban MD, General Surgery. Procedures Laparoscopic appendectomy. Hx of Present Illness Chief complaint: Abdominal pain This is a 22-year-old male who presents the emergency department complaining of intermittent abdominal pain and some nausea for the past 5 days. Stated he ate some crab on Friday and started having pain after that. Patient stated that he is here visiting his mom from [place]. He tried some Zantac. Denied any fevers or chills, vomiting, diarrhea, constipation. In the emergency room, the patient was noticed to have minimal leukocytosis. The patient underwent a CT scan of the abdomen and pelvis that showed acute appendicitis. Allergies: Seafood, shrimp Medications: None Hospital Course The patient was admitted to inpatient medical surgical floor. The patient was started on empiric antibiotics. The patient was kept n.p.o. The patient was provided with IV fluids. General Surgery consult was obtained. The patient underwent a laparoscopic appendectomy on 06/06/2017. Postoperatively, the patient was started on a clear liquid diet and the patient's diet was advanced as tolerated to a regular consistency diet. The patient was encouraged to use incentive spirometry and the patient was encouraged on frequent ambulation. The patient was able to tolerate a regular consistency diet without any significant gastrointestinal symptoms. The patient was cleared by General Surgery to be discharged home. DISCHARGE DISPOSITION/PLAN: The patient will be discharged home today. The patient was instructed to take a regular diet as tolerated. The patient was instructed to keep the incisions clean and dry. He was instructed that he may shower, but avoid hot bath and swimming for two weeks. He was instructed to use mild soap and pat dry the incisions. The patient was instructed to take pain medications as needed. He was instructed to call the surgeon or go to the nearest emergency room if he has significant abdominal pain despite pain medications. The patient was instructed to call the surgeon or go to the nearest emergency room if he notices any bleeding or secretions coming out of the incision site. He was also instructed to call the surgeon if he notices any blood in stool, if he has persistent fevers, or any other unusual signs/ symptoms. The patient was instructed to follow up with Dr. Caban in seven days for incision check. He was instructed to avoid heavy lifting of more than 25 pounds for eight weeks. The patient verbalized understanding of his discharge instructions. DISCHARGE MEDICATIONS: 1. Colace 100 mg p.o. b.i.d. 2. [place] 5/325, 1 tablet p.o. every 4 hours p.r.n. pain (#20 tablets). DIAGNOSTIC DATA AND PROCEDURES: 1. CT scan of the abdomen and pelvis upon admission. Acute appendicitis. Trace pelvic free fluid. 2. Chest x-ray. Negative for any acute cardiopulmonary process. 3. CBC: WBC 11.3, hemoglobin 14.3, hematocrit 40.5, platelet count 245,000. 4. BMP: Sodium 141, potassium 4.3, chloride 104, carbon dioxide 30, anion gap 11, BUN 15, creatinine 0.8, glucose 98, calcium 9.1, AST 22, ALT 48, alkaline phosphatase 140. 5. Laparoscopic appendectomy. At this time, I would like to thank Dr. Caban for seeing the patient, doing the necessary procedures, and providing clinical recommendations. The patient had discharge orders on 06/06/2017. However, the patient had some difficulty with tolerating oral intake. Hence the patient's discharge was delayed until 06/07/2017. The patient's condition remains stable upon discharge. The case and management of this patient was fully discussed with Dr. Wiggins. Home Meds Active Scripts Docusate Sodium* (Colace*) 100 Mg Capsule, 100 MG PO BID, #20 CAP Prov:NUBIA PETERSON NP 06/06/17 Hydrocodone Bit-Acetaminophen (Hydrocodone Bit-APAP) 5-325MG Tablet, 1 TAB PO Q4H Y for PAIN LEVEL 4-7, #20 TAB Prov:NUBIA PETERSON NP 06/06/17 Follow-up Plan Ming Caban MD Specialty General Surgery Office Address [address] [place], [place] [id number] Office Primary Care Provider Not On Staff Doctor Time spent on discharge: > 30 minutes Pending Labs Laboratory Tests Test 06/06/17 12:08 06/07/17 05:21 Prothrombin Time 13.2Sec (12.2-14.2) Prothrombin Time Ratio 1.0 INR International Normalized Ratio 1.00 White Blood Count 13.310^3/ul (4.8-10.8) Red Blood Count 4.2010^6/ul (4.70-6.10) Hemoglobin 13.4g/dl (14.0-18.0) Hematocrit 38.6% (42.0-52.0) Mean Corpuscular Volume 91.9fl (82.0-101.0) Mean Corpuscular Hemoglobin 31.9pg (29.0-33.0) Mean Corpuscular Hemoglobin Concent 34.7g/dl (32.0-37.0) Red Cell Distribution Width 12.4% (11.5-14.5) Platelet Count 02887^3/UL (140-415) Mean Platelet Volume 10.6fl (7.4-10.4) Neutrophils % 72.7% (39.0-77.0) Lymphocytes % 19.9% (15.0-51.0) Monocytes % 6.9% (0.0-11.0) Eosinophils % 0.0% (0.0-7.0) Basophils % 0.1% (0.0-2.0) Nucleated Red Blood Cells % 0.0/100WBC (0.0-0.0) Neutrophils # 9.710^3/ul (1.6-7.5) Lymphocytes # 2.710^3/ul (0.8-2.9) Monocytes # 0.910^3/ul (0.3-0.9) Eosinophils # 0.010^3/ul (0.0-0.5) Basophils # 0.010^3/ul (0.0-0.1) Nucleated Red Blood Cells # 0.010^3/ul (0.0-0.0) Sodium Level 140mmol/L (135-144) Potassium Level 4.0mmol/L (3.5-5.1) Chloride Level 106mmol/L (97-110) Carbon Dioxide Level 26mmol/L (21-31) Anion Gap 12 (8-16) Blood Urea Nitrogen 9mg/dl (7-20) Creatinine 0.75mg/dl (0.61-1.24) Glucose Level 87mg/dl (70-220) Hemoglobin A1c 5.0% (0-5.9) Calcium Level 9.0mg/dl (8.4-10.2) Magnesium Level 1.7mg/dl (1.7-2.5) Total Bilirubin 0.7mg/dl (0.2-1.3) Direct Bilirubin 0.00mg/dl (0.00-0.20) Indirect Bilirubin 0.7mg/dl (0-1.1) Aspartate Amino Transf (AST/SGOT) 28IU/L (15-46) Alanine Aminotransferase (ALT/SGPT) 37IU/L (13-69) Alkaline Phosphatase 105IU/L (42-121) Total Protein 7.1g/dl (6.1-8.1) Albumin 3.6g/dl (3.3-4.9) Globulin 3.50g/dl (1.3-3.2) Albumin/Globulin Ratio 1.02 Triglycerides Level 100mg/dl (0-149) Cholesterol Level 147mg/dl (100-200) LDL Cholesterol, Calculated 90mg/dl HDL Cholesterol 37mg/dl (30-63) Cholesterol/HDL Ratio 3.9RATIO Thyroid Stimulating Hormone (TSH) 0.346MIU/L (0.465-4.680) NUBIA PETERSON NP Jun 07, 2017 08:54 0.346MIU/L (0.465-4.680) NUBIA PETERSON NP Jun 07, 2017 08:54
[2017-06-07] MEDS ORDERED: ENOXAPARIN 40 MG/0.4 ML SYG SC SCH (09:00)
== END 2017-06-07 11:00 | disposition home or self-care (01) | DRG 343 ==
LOC: FTE 19:40 → MS2 06-06 00:14
PROVIDERS: ADMIT Family Medicine; ATTEND Family Medicine
PROC: 0DTJ4ZZ Resection of Appendix, Percutaneous Endoscopic Approach (ICD-10-PCS; principal; 2017-06-06 11:30)
DX: K35.80 Unspecified acute appendicitis (principal); J45.909 Unspecified asthma, uncomplicated
CPT/HCPCS: 71010; 74176; 80053; 80061; 81003; 83036; 83690; 83735; 84439; 84443; 85025; 85610; 87040; 88304; 93005; 96374; J0131; J1100; J1170; J1650; J1885; J2175; J2250; J2405; J2543; J2710; J3010; J7030; J7999

== ENCOUNTER 2017-06-18 16:04 | Outpatient (CLI) | payer SELFPAY ==
[~2017-06-18] VITALS: Ht 162.6 cm; Wt 75.9 kg
[~2017-06-18 16:04] MED LIST: DOCU-144 PO; HYDR-3498 PO
[2017-06-18 16:13] VITALS: BP 118/76; PULSE 75; RESP 16; Ht 162.6 cm; Wt 75.9 kg
--- NOTE | 2017-06-18 16:32 | PN ---
Date/Time of Note Date/Time of Note DATE: 06/18/17 TIME: 16:29 Assessment/Plan Assessment/Plan Assessment/Plan [facility] Progress Note Date of Service: 06/18/2017 Location of Service: [facility] Today's Assessment & Plan: Overall stable and doing well after undergoing laparoscopic appendectomy at [facility] on 06/06/2017 for what was ultimately found to be acute appendicitis with perforation and periappendicitis. Abdomen remains benign. No indications of major postoperative complications or wound problems. No indication for acute surgical intervention. With above assessment, I've recommended the following for today: 1. Follow-up with PCP 2. Follow-up with us as needed 3. Okay to travel back to [place] next week Thank you again for your great care of this very pleasant patient and wonderful family. If there are any questions, please feel free to call me at [phone]. Nature of presenting problem: High severity Please note that, given the multiple number of diagnoses or management options, the moderate amount and/or complexity of data needed to be reviewed, and high risk of complications and/or morbidity or mortality, this qualifies as moderate complexity type of decision-making. Disclaimers: 1. Inadvertent spelling and grammatical errors are likely due to electronic health record (EHR)/dictation software used and do not reflect on the quality of delivered patient care. 2. The electronic timestamp recorded on this note does not necessarily reflect the actual date and time of the visit or the service. 3. Portions of this note may have been created through electronic templates and computer algorithms that might bring in information either from the system or from other physicians and providers. Please note that such information may or may not contain errors, the occurrence of which are outside of my control. In general (but not always) this happens either in the beginning or at the end of the note. The portion of the note that I have created are generally done in 1 continuous block of text, flanked at the beginning and at the end by " ", and entered into one field in the EHR. 4. There may be other unanticipated errors in the note that are outside of my control. I can only attest to the portions of the note that I have created. Updated clinical summary: Very pleasant and otherwise healthy 22-year-old gentleman with comorbidity of BMI 28.4, presenting with acute appendicitis to [facility] through the emergency department on 06/06/2017. Comorbidities: 1. Acute appendicitis. S/p laparoscopic appendectomy at [facility] on 06/06/2017 for what was ultimately found to be acute appendicitis with perforation and periappendicitis 2. BMI 28.4 Subjective: No major events or complaints since discharge; no abd pain and no longer taking pain medications; no n/v/d; no sob or cp; + flatus; + BM and normal; + activity Objective: Vitals: See below Exam: GENERAL: On exam, the patient was sitting up in a chair and appeared to be comfortable and in no acute distress. ABDOMEN: Soft, nontender and nondistended. Incision s [ are clean, dry and intact without any evidence of erythema, edema, discharge, or hernia. There are no peritoneal signs or guarding. SKIN: Skin appears to be pink and feels warm to touch. NEUROLOGIC: Patient is awake, alert, and follows commands appropriately. Exam/Review of Systems Vital Signs Vitals Vital Signs Date Time Temp Pulse Resp B/P Pulse Ox O2 Delivery O2 Flow Rate FiO2 06/18/17 16:13 98.1 75 16 118/76 Room Air STANTON HAMILTON M.D. Jun 18, 2017 16:32
== END 2017-06-18 16:55 | disposition home or self-care (01) ==
LOC: HPC 16:04
PROVIDERS: ATTEND Transplant Surgery
DX: K35.80 Unspecified acute appendicitis (principal)
CPT/HCPCS: G0463